=== PATIENT | female | born 1970 | race Caucasian/White ===

== ENCOUNTER → 2018-05-31 | Outpatient (CLI) | payer BC ==
[~2018-05-31] MED LIST: CARV12.53 PO; ETHI1TAB PO; LEVO100T PO; LOSA100T57 PO
--- NOTE | 2018-05-31 18:04 | Diagnostic Imaging Report ---
INDICATION: Routine screening. COMPARISON: No prior mammograms are available for comparison. This is a baseline study. TECHNIQUE: 2-D and 3-D bilateral screening mammography was performed with CAD. FINDINGS: Scattered fibronodular densities are identified bilaterally. No mass or malignant appearing microcalcifications are seen. The axillae are unremarkable. IMPRESSION: BI-RADS category 1. No mammographic features suspicious for malignancy are identified. Dictated by: Dictated on workstation # [id number]
== END ==
LOC: RAD 08:02
PROVIDERS: ATTEND Internal Medicine
DX: Z12.31 Encounter for screening mammogram for malignant neoplasm of breast (principal)
CPT/HCPCS: 77067

== ENCOUNTER → 2018-09-30 | Outpatient (CLI) | payer BC ==
[~2018-09-30] MED LIST changes: +ETHI1TAB19 PO; +LEVO175T5 PO; +NAPR-915 PO
--- NOTE | 2018-09-30 16:53 | Diagnostic Imaging Report ---
PROCEDURE: US Non-ob pelvis comp/trans. INDICATION: Abnormal uterine bleeding TECHNIQUE: Multiple real time ramirez scale sonographic images were obtained of the pelvis transabdominally and transvaginally. CORRELATION STUDY: None FINDINGS: UTERUS: 7.8 x 4.0 x 3.6 cm. The uterus appears unremarkable. ENDOMETRIUM: 4 mm. The endometrium appearing unremarkable. Small amount of fluid noted in the endometrial canal near the cervix. Cervical nabothian cyst is present measuring 5 mm. RIGHT OVARY/LEFT OVARY: The ovaries are not visualized on either transabdominal or transvaginal imaging. No significant free pelvic fluid. IMPRESSION: 1. Endometrial thickness within normal limits. There is small amount of fluid perhaps blood within the lower endometrial canal. 2. Nonvisualization of either ovary. Dictated by: Dictated on workstation # [id number]
== END ==
LOC: RAD 16:17
PROVIDERS: ATTEND Obstetrics & Gynecology
DX: N93.9 Abnormal uterine and vaginal bleeding, unspecified (principal)
CPT/HCPCS: 76830; 76856

== ENCOUNTER 2018-10-04 05:47 | Outpatient (CLI) | payer BC ==
[~2018-10-04] VITALS: Ht 172.7 cm; Wt 147.4 kg
[~2018-10-04 05:47] MED LIST changes: -ETHI1TAB19 PO; -LEVO175T5 PO; -NAPR-915 PO
[2018-10-04] MEDS ORDERED: NAPR-915 PO (13:21)
[2018-10-04] MEDS ORDERED: ETHI1TAB19 PO (13:21)
[2018-10-04] MEDS ORDERED: LEVO175T5 PO (13:21)
== END 2018-10-04 13:32 | disposition home or self-care (01) ==
LOC: PREOP 05:47
PROVIDERS: ATTEND Obstetrics & Gynecology
DX: Z01.818 Encounter for other preprocedural examination (principal)

== ENCOUNTER 2018-10-07 07:04 | Day surgery (SDC) | payer BC ==
[~2018-10-07] VITALS: Ht 172.7 cm; Wt 147.4 kg
[2018-10-07] VITALS (11 sets, daily range): BP systolic 108–125; BP diastolic 65–76
[~2018-10-07 07:04] MED LIST changes: +ETHI1TAB19 PO; +LEVO175T5 PO; +NAPR-915 PO
[2018-10-07] MEDS ORDERED: BUPIVACAINE 0.25% 30 ML (SENSORCAINE) VIAL ONE (07:18)
[2018-10-07] MEDS ORDERED: LACTATED RINGERS 1,000 ML IV PRN (07:50)
[2018-10-07 07:51] LABS: BASOPHILS % (AUTO) 0 % (0-10); EOSINOPHILS # (AUTO) 0.2 10^3/uL (0.0-0.3); EOSINOPHILS % (AUTO) 2 % (0-10); HEMATOCRIT 36 % (35-52); HEMOGLOBIN 12.2 G/DL (11.5-16.0); LYMPHOCYTES # (AUTO) 3.1 X 10^3 (1.0-4.0); LYMPHOCYTES % (AUTO) 34 % (12-44); MEAN CORPUSCULAR HEMOGLOBIN 30 PG (25-34); MEAN CORPUSCULAR HGB CONC 34 G/DL (32-36); MEAN CORPUSCULAR VOLUME 89 FL (80-99); MEAN PLATELET VOLUME 10.2 FL (7.4-10.4); MONOCYTES # (AUTO) 0.8 X 10^3 (0.0-1.0); MONOCYTES % (AUTO) 8 % (0-12); NEUTROPHILS # (AUTO) 5.1 X 10^3 (1.8-7.8); NEUTROPHILS % (AUTO) 55 % (42-75); PLATELET COUNT 238 10^3/uL (130-400); RED CELL DISTRIBUTION WIDTH 13.3 % (10.0-14.5); WHITE BLOOD COUNT 9.2 10^3/uL (4.3-11.0)
[2018-10-07] MEDS ORDERED: fentaNYL INJECTION 100 MCG/2 ML AMP ONE (08:25)
[2018-10-07] MEDS ORDERED: MIDAZOLAM 2 MG/2 ML (VERSED) VIAL ONE (08:25)
--- NOTE | 2018-10-07 08:34 | Progress Note-Pre Operative ---
Pre-Operative Progress Note H&P Reviewed The H&P was reviewed, patient examined and no changes noted. Date Seen by Provider: Oct 07, 2018 Time Seen by Provider: 08:30 Date H&P Reviewed: Oct 07, 2018 Time H&P Reviewed: 08:30 Pre-Operative Diagnosis: DEBORAH BLANCHARD DO Oct 07, 2018 08:34
--- NOTE | 2018-10-07 08:35 | Discharge Inst-Women's Service ---
Discharge Inst-Women's Serv Depart Medication/Instructions New, Converted or Re-Newed RX: RX on Chart Problems Reviewed?: Yes Consults/Follow Up Additional Follow Up: Yes Orders/Referrals Dr. Quinn in 2-3 weeks Activity Activity: Activity as Tolerated Driving Instructions: No Driving for 1 Week NO SMOKING: NO SMOKING Nothing Inside Vagina: No Douching, No [place], No Tampons Diet Discharge Diet: No Restrictions Symptoms to Report to : Bleeding Excessive, Pain Increased, Fever Over 101 Degrees F, Vaginal Bleeding Increase, Questions/Concerns For Any Problems or Questions: Contact Your Physician DEBORAH QUINN DO Oct 07, 2018 08:35
[2018-10-07] MEDS ORDERED: IBUP-1773 PO (08:36)
[2018-10-07] MEDS ORDERED: D5 LR IV SOLUTION 1,000 ML IV SCH (08:47)
[2018-10-07] MEDS ORDERED: HYDROcodone/APAP 5 MG/325 MG (LORTAB) TAB PO PRN (09:00)
[2018-10-07] MEDS ORDERED: ONDANSETRON 4 MG/2 ML (SDV) Z0FRAN IVP PRN ×2 (09:00→09:45)
[2018-10-07] MEDS ORDERED: KETOROLAC 30 MG/ML VIAL IVP ONE (09:00)
[2018-10-07] MEDS ORDERED: proPOfol 200 MG/20 ML (DIPRIVAN) VIAL IV ONE (09:15)
[2018-10-07] MEDS ORDERED: LIDOCAINE PF 2% 5 ML (XYLOCAINE) VIAL ONE (09:15)
[2018-10-07] MEDS ORDERED: GLYCOPYRROLATE 0.2 MG/ML (ROBINUL) 2 ML VIAL ONE (09:15)
[2018-10-07] MEDS ORDERED: PHENYLEPHRINE 100 MCG/ML 10 ML (ANESTHESIA) SYR ONE (09:16)
[2018-10-07] MEDS ORDERED: SEVOFLURANE (ULTANE) 15 ML INHAL SOLN ONE ×2 (09:17→09:24)
[2018-10-07] MEDS ORDERED: HYDROmorphone 2 MG/ML VIAL (DILAUDID) IV ONE (09:45)
--- NOTE | 2018-10-07 11:03 | Anesthesia-General Post-Op ---
General Patient Condition Mental Status/LOC: Same as Preop Cardiovascular: Satisfactory Nausea/Vomiting: Absent Respiratory: Satisfactory Pain: Controlled Complications: Absent Post Op Complications Complications None Follow Up Care/Instructions Patient Instructions None needed. Anesthesia/Patient Condition Patient Condition Patient is doing well, no complaints, stable vital signs, no apparent adverse anesthesia problems. No complications reported per nursing. STACIA ALMAGUER CRNA Oct 07, 2018 11:03
--- NOTE | 2018-10-07 16:31 | OPERATIVE REPORT ---
DATE OF SERVICE: 10/07/2018 PREOPERATIVE DIAGNOSES: 1. A 47-year-old female with abnormal uterine bleeding. 2. BMI greater than 40. POSTOPERATIVE DIAGNOSES: 1. A 47-year-old female with abnormal uterine bleeding. 2. BMI greater than 40. PROCEDURE: D and C. SURGEON: Deborah Quinn DO ANESTHESIA: General endotracheal. ESTIMATED BLOOD LOSS: Minimal. URINE OUTPUT: 50 mL, clear drained at the end of the procedure. FLUIDS: 1000 mL lactated Ringer solution. FINDINGS: Grossly normal external female genitalia including the vagina and the cervix, which appears normal, not enlarged uterus, moderate amount of endometrial tissue. SPECIMENS SENT: Was endometrial curettings. INDICATION FOR PROCEDURE: This 47-year-old female is a patient, who was seen in my office for heavy ongoing bleeding that had been occurring for almost a month to the point that the patient was concerned about becoming anemic and lightheaded. She had been on oral contraceptive pills and told to double up her oral contraceptive pills until the day of surgery to help control her bleeding as she was scheduled within the next week for D and C to hopefully help cure the bleeding problem, but also for diagnostic purposes due to the patient's risk factor of greater than 40 and elevated BMI. Risks of the procedure were discussed with the patient in detail and once all of her questions were answered with her and her present, consent was obtained in the preoperative area, the patient was taken to the operating room. OPERATIVE REPORT IN DETAIL: Once in the operating room, anesthesia was found to be adequate. She was placed in dorsal lithotomy position, prepped and draped in normal sterile fashion. A timeout was performed. Weighted speculum was inserted in the patient's vagina. Right angle retractor was used to visualize the cervix, which was grasped at 12 o'clock position using a long Allis clamp. I then performed paracervical block at 3 and 9 o'clock positions using 0.25% Marcaine and 5 mL were injected into each site. Care was taken to aspirate before injecting. I then gently sound the uterine cavity, which was found to be approximately 7 cm. I then gently dilated the cervix using Hegar dilators to approximately 6 mm at which point, I advanced a small to medium size endometrial curette into the endometrium and cleared the endometrium with gentle curettage on all surfaces until I feel that adequate uterine cry is felt from all directions, at which point, I collected endometrial tissue and sent it as endometrial curettings. There was no active bleeding noted from any of my dissection planes. I removed all the other instruments from the patient's vagina. Straight catheterization was used to drain the bladder. The patient tolerated the procedure well and sent to recovery area in stable condition. Lap and sponge counts were correct at the end of the procedure. Instrument counts were correct as well. Job ID: [id number] DocumentID: [id number] Dictated Date: 10/07/2018 09:47:23 Bed Placement Coordinator Date: 10/07/2018 16:30:34 Dictated By: DEBORAH QUINN DO
== END 2018-10-07 11:55 | disposition home or self-care (01) ==
LOC: SDC 07:04
PROVIDERS: ATTEND Obstetrics & Gynecology
DX: N93.9 Abnormal uterine and vaginal bleeding, unspecified (principal); N71.1 Chronic inflammatory disease of uterus; E03.9 Hypothyroidism, unspecified; D64.9 Anemia, unspecified; I10 Essential (primary) hypertension; E66.01 Morbid (severe) obesity due to excess calories; Z68.42 Body mass index [BMI] 45.0-49.9, adult; Z79.3 Long term (current) use of hormonal contraceptives; Z90.49 Acquired absence of other specified parts of digestive tract; Z79.899 Other long term (current) drug therapy; Z98.890 Other specified postprocedural states; Z84.89 Family history of other specified conditions; Z82.49 Family history of ischemic heart disease and other diseases of the circulatory system; Z83.3 Family history of diabetes mellitus
CPT/HCPCS: 36415; 84703; 85025; 86850; 86900; 86901; 87081; 88305

== ENCOUNTER → 2019-07-21 | Outpatient (CLI) | payer BC ==
[~2019-07-21] MED LIST changes: +IBUP-1773 PO
--- NOTE | 2019-07-21 11:46 | Diagnostic Imaging Report ---
INDICATION: Routine screening. Comparison is made with prior mammogram from 05/31/2018. 2-D and 3-D bilateral screening mammography was performed with CAD. Scattered fibroglandular densities are identified bilaterally. The parenchymal pattern is stable. No dominant mass or malignant appearing microcalcifications are seen. Axillae are unremarkable. IMPRESSION: BI-RADS Category 1 No mammographic features suspicious for malignancy are identified. ACR BI-RADS Category 1: Negative. Result letter will be mailed to the patient. Note: At least 10% of breast cancer is not imaged by mammography. Dictated by: Dictated on workstation # [id number]
== END ==
LOC: RAD 08:44
PROVIDERS: ATTEND Internal Medicine
DX: Z12.31 Encounter for screening mammogram for malignant neoplasm of breast (principal)
CPT/HCPCS: 77063; 77067

== ENCOUNTER → 2020-11-04 | Outpatient (CLI) | payer BC ==
--- NOTE | 2020-11-04 08:41 | Diagnostic Imaging Report ---
INDICATION: Routine screening. COMPARISON: 07/21/2019 and 05/31/2018. TECHNIQUE: 2D and 3D bilateral screening mammography was performed with CAD. FINDINGS: Scattered fibroglandular densities are identified bilaterally. The parenchymal pattern is stable. No mass or malignant-appearing microcalcifications are seen. The axillae are unremarkable. IMPRESSION: No mammographic features suspicious for malignancy are identified. ACR BI-RADS Category 1: Negative. Result letter will be mailed to the patient. Note: At least 10% of breast cancer is not imaged by mammography. Dictated by: Dictated on workstation # [id number]
== END ==
LOC: RAD 07:45
PROVIDERS: ATTEND Internal Medicine
DX: Z12.31 Encounter for screening mammogram for malignant neoplasm of breast (principal)
CPT/HCPCS: 77063; 77067

== ENCOUNTER → 2021-11-11 | Outpatient (CLI) | payer BC ==
--- NOTE | 2021-11-11 10:28 | Diagnostic Imaging Report ---
Indication: Routine screening. Comparison is made with prior mammogram 11/04/2020 and 07/21/2019. 2-D and 3-D bilateral screening mammography was performed with CAD. CAD is utilized. The current study was also evaluated with a Computer Aided Detection (CAD) system. Scattered fibroglandular densities are identified bilaterally. The parenchymal pattern is stable. No mass or malignant-appearing microcalcifications are seen. Axillae are unremarkable. IMPRESSION: BI-RADS Category 1 No mammographic features suspicious for malignancy are identified. ACR BI-RADS Category 1: Negative. Result letter will be mailed to the patient. Note: At least 10% of breast cancer is not imaged by mammography. Dictated by: Dictated on workstation # [id number]
== END ==
LOC: RAD 07:50
PROVIDERS: ATTEND Internal Medicine
DX: Z12.31 Encounter for screening mammogram for malignant neoplasm of breast (principal)
CPT/HCPCS: 77063; 77067

== ENCOUNTER 2022-10-10 05:35 | Emergency (ER) | payer BC ==
[~2022-10-10] VITALS: Ht 175 cm; Wt 136.0 kg
[~2022-10-10 05:35] MED LIST changes: -LOSA100T57 PO; +LOSA100T58 PO
[2022-10-10 06:00] VITALS: BP 151/107
[2022-10-10] MEDS ORDERED: KETOROLAC 30 MG/ML VIAL IVP ONE (06:15)
--- NOTE | 2022-10-10 06:22 | ED Abdominal Pain ---
General Chief Complaint: Dental Problems/Pain Stated Complaint: FACE SWELLING,EAR & JAW PX,RT SIDE Nursing Triage Note: PATIENT REPORTS SHE HAS BEEN HAVING JAW/DENTAL ISSUES SINCE JULY. STATES SHE HAS BEEN SEEING AN ENT SPECIALIST, DENTIST. PATIENT STATES PAIN RT SIDE OF MOUTH. STATES SWELLING OCCURRED WEDNESDAY, ROOF OF MOUTH RT SIDE. Source of Information: Patient, Old Records Exam Limitations: No Limitations History of Present Illness Date Seen by Provider: Oct 10, 2022 Time Seen by Provider: 06:02 Initial Comments This pleasant 51-year-old woman presents to the emergency room by private vehicle with complaints of right facial pain and swelling extending from the preauricular area down through the anterior chin. She has been seen by primary care, a practitioner at Dr. Morataya's office (ENT), a chiropractor, and a dentist. Symptoms started in July and she was treated with a round of Augmentin at that time. Symptoms have rebounded and worsened, in particular through the night last night. She was seen by her dentist and had x-rays obtained. By her report these were not particularly helpful in a diagnosis. She states her dentist thought perhaps she had trigeminal neuralgia. TMJ was also suggested at one point during evaluation. She notes more severe swelling in the right side of her face, particularly around the chin this morning. There is mild erythema of the chin. She has significant tenderness in that region. She took Tylenol at 0200 and Benadryl at 0300. She denies fever. She does appear uncomfortable and was tearful toward the conclusion of our interview. Allergies and Home Medications Allergies Coded Allergies: No Known Drug Allergies (Unverified , 10/04/18) Patient Home Medication List Home Medication List Reviewed: Yes Carvedilol (Carvedilol) 12.5 Mg Tablet, 18.25 MG PO BID, (Reported) Entered as Reported by: DEREJE ANNE on 02/12/15 1553 Clindamycin HCl (Clindamycin HCl) 300 Mg Capsule, 300 MG PO QID Prescribed by: MAREN SCHMIDT on 10/10/22 1005 Ethinyl Estradiol/Drospirenone (Roxana 28 Tablet) 1 Each Tablet, 1 EACH PO DAILY, (Reported) Entered as Reported by: DEREJE ANNE on 10/04/18 1321 Ibuprofen (Ibuprofen) 600 Mg Tablet, 600 MG PO Q6H Prescribed by: DEBORAH QUINN on 10/07/18 0836 Levothyroxine Sodium (Levothyroxine Sodium) 175 Mcg Tablet, 175 MCG PO DAILY, (Reported) Entered as Reported by: DEREJE ANNE on 10/04/18 1321 Losartan Potassium (Losartan Potassium) 100 Mg Tablet, 100 MG PO DAILY, (Reported) Entered as Reported by: DEREJE ANNE on 02/12/15 1553 Naproxen (Naproxen) 500 Mg Tablet, 500 MG PO Q12H PRN for PAIN-MILD TO MODERATE, (Reported) Entered as Reported by: DEREJE ANNE on 10/04/18 1321 Tramadol HCl (Tramadol HCl) 50 Mg Tablet, 50 MG PO Q6H PRN for PAIN Prescribed by: MAREN SCHMIDT on 10/10/22 1006 Review of Systems Review of Systems Constitutional: no symptoms reported EENTM: See HPI Respiratory: No Symptoms Reported Cardiovascular: No Symptoms Reported Gastrointestinal: No Symptoms Reported Genitourinary: No Symptoms Reported Musculoskeletal: no symptoms reported Skin: no symptoms reported Psychiatric/Neurological: No Symptoms Reported Endocrine: No Symptoms Reported Hematologic/Lymphatic: No Symptoms Reported Past Eszdfdb-Ywhfzw-Dvsapa Hx Patient Social History Tobacco Use?: No Use of E-Cig and/or Vaping dev: No Substance use?: No Alcohol Use?: Yes Alcohol Frequency: Several times a month Seasonal Allergies Seasonal Allergies: No Past Medical History Surgeries: Yes (ROTATOR CUFF REPAIR) Gallbladder, Orthopedic Respiratory: No Cardiac: Yes Hypertension Neurological: No Reproductive Disorders: No Female Reproductive Disorders: Menstrual Problems Sexually Transmitted Disease: No HIV/AIDS: No Genitourinary: No Gastrointestinal: No Musculoskeletal: Yes (TOLD SHE HAS ARTHRITIS IN SHOULDER) Arthritis Endocrine: Yes Hypothyroidsim HEENT: Yes (CONTACTS, history TMJ) Loss of Vision: Denies Hearing Impairment: Denies Cancer: No Psychosocial: No Integumentary: Yes Psoriasis Blood Disorders: Yes (MILD ANEMIA) Adverse Reaction/Blood Tranf: No (N/A) Physical Exam Vital Signs Vital Signs - First Documented 10/10/22 06:00 Temp 36.9 Pulse 74 Resp 18 B/P (MAP) 151/107 (122) Pulse Ox 96 O2 Delivery Room Air Capillary Refill : Less Than 3 Seconds Height/Weight/BMI Height: 5'8.00" Weight: 325lbs. 0.0oz. 147.924166yw; 44.00 BMI Method: General Appearance: mild distress, obese HEENT: PERRL/EOMI, pharynx normal, TM abnormal (R) (Mild retraction), TM abnormal (L) (Mild retraction), other (Slight edema on the roof of the mouth near the right molars. Right lower face edema, particularly around the anterior mandible with mild erythema and significant tenderness. No induration or edema of the mouth floor. Caps on multiple teeth with some dental decay noted.) Neck: non-tender, supple, normal inspection; No lymphadenopathy (R), No lymphadenopathy (L) Respiratory: lungs clear, normal breath sounds, no respiratory distress, no accessory muscle use Cardiovascular: regular rate, rhythm, no edema, no murmur Extremities: normal inspection Neurologic/Psychiatric: respiratory care faculty II-XII nml as tested, no motor/sensory deficits, alert, normal mood/affect, oriented x 3 Skin: warm/dry, other (Erythema about the anterior mandible) Progress/Results/Core Measures Results/Orders Lab Results Laboratory Tests Test 10/10/22 06:24 Range/Units White Blood Count 8.4 4.3-11.0 10^3/uL Red Blood Count 4.35 3.80-5.11 10^6/uL Hemoglobin 13.4 11.5-16.0 g/dL Hematocrit 40 35-52 % Mean Corpuscular Volume 91 80-99 fL Mean Corpuscular Hemoglobin 31 25-34 pg Mean Corpuscular Hemoglobin Concent 34 32-36 g/dL Red Cell Distribution Width 13.2 10.0-14.5 % Platelet Count 222 130-400 10^3/uL Mean Platelet Volume 10.0 9.0-12.2 fL Immature Granulocyte % (Auto) 0 % Neutrophils (%) (Auto) 61 42-75 % Lymphocytes (%) (Auto) 26 12-44 % Monocytes (%) (Auto) 10 0-12 % Eosinophils (%) (Auto) 2 0-10 % Basophils (%) (Auto) 1 0-10 % Neutrophils # (Auto) 5.2 1.8-7.8 10^3/uL Lymphocytes # (Auto) 2.2 1.0-4.0 10^3/uL Monocytes # (Auto) 0.8 0.0-1.0 10^3/uL Eosinophils # (Auto) 0.2 0.0-0.3 10^3/uL Basophils # (Auto) 0.1 0.0-0.1 10^3/uL Immature Granulocyte # (Auto) 0.0 0.0-0.1 10^3/uL Erythrocyte Sedimentation Rate 20 0-20 MM/HR Sodium Level 137 135-145 MMOL/L Potassium Level 4.2 3.6-5.0 MMOL/L Chloride Level 106 98-107 MMOL/L Carbon Dioxide Level 20 L 21-32 MMOL/L Anion Gap 11 5-14 MMOL/L Blood Urea Nitrogen 12 7-18 MG/DL Creatinine 0.82 0.60-1.30 MG/DL Estimat Glomerular Filtration Rate 88 BUN/Creatinine Ratio 15 Glucose Level 97 70-105 MG/DL Calcium Level 9.1 8.5-10.1 MG/DL Corrected Calcium 9.0 8.5-10.1 MG/DL Total Bilirubin 0.7 0.1-1.0 MG/DL Aspartate Amino Transf (AST/SGOT) 21 5-34 U/L Alanine Aminotransferase (ALT/SGPT) 26 0-55 U/L Alkaline Phosphatase 61 40-136 U/L C-Reactive Protein High Sensitivity 0.78 H 0.00-0.50 MG/DL Total Protein 7.6 6.4-8.2 GM/DL Albumin 4.1 3.2-4.5 GM/DL My Orders Orders - MAREN ROBERTS MD Cbc With Automated Diff (10/10/22 06:14) Comprehensive Metabolic Panel (10/10/22 06:14) Hs C Reactive Protein (10/10/22 06:14) Erythrocyte Sedimentation Rate (10/10/22 06:14) Ed Iv/Invasive Line Start (10/10/22 06:14) Ketorolac Injection (Toradol Injection) (10/10/22 06:15) Ct Maxillofacial W (10/10/22 07:20) Iohexol Injection (Omnipaque 350 Mg/Ml 1 (10/10/22 07:45) Received Contrast (Hold Metformin- Contr (10/10/22 07:45) Ns (Ivpb) 100 Ml (Sodium Chloride 0.9% 1 (10/10/22 07:45) Clindamycin 600 Mg/50 Ml Ivpb (Clindamyc (10/10/22 09:30) Tramadol Tablet (Ultram Tablet) (10/10/22 09:45) Iv Infusion <= First Hr Ed (10/10/22 ) Medications Given in ED Vital Signs/I&O 10/10/22 06:00 Temp 36.9 Pulse 74 Resp 18 B/P (MAP) 151/107 (122) Pulse Ox 96 O2 Delivery Room Air Blood Pressure Mean: 122 Progress Progress Note #1: Time: 06:17 Progress Note Patient was interviewed and examined at 0602 as she was being roomed and triaged. Labs have been ordered and are pending. Pain will be treated with Toradol. CT evaluation of the face and neck is anticipated. Progress Note #2: Time: 07:06 Progress Note Labs were reviewed and interpreted by me including CBC, CMP, and CRP. ESR was pending. Student updated patient. She had no questions and was ready to proceed with CT. CT ordered. Progress Note #3: Time: 09:[address] was obtained and reviewed by me. By my interpretation there was cellulitis over the anterior portions of the mandible. There is also significant dental and periodontal disease noted with lucency in the bone structures. There was a lso a lucency in the subcutaneous tissue anterior to the mandible. Abscess was felt unlikely but uncertain by my interpretation. No significant sinusitis was appreciated. Radiologist's report was reviewed and did not identify any abscess. See report below for details. Patient was treated initially with clindamycin by IV route. She was feeling better with Toradol. Pain was further treated with tramadol. I discussed findings and treatment plan with the patient. Questions were answered. See discharge instructions for further discussion. Diagnostic Imaging Diagonstic Imaging: CT Plain Films/CT/US/NM/MRI: facial bones Comments NAME: LISS CROCK[facility] REC#: [id number] PT STATUS: REG ER : 1970 PHYSICIAN: MAREN ROBERTS MD ADMIT DATE: 10/10/22/ER Signed Date of Exam:10/10/22 CT MAXILLOFACIAL W PROCEDURE: CT maxillofacial with contrast. TECHNIQUE: After intravenous administration of contrast, axial images were obtained through the face and reformatted into coronal and sagittal planes. Auto Exposure Controls were utilized during the CT exam to meet ALARA standards for radiation dose reduction. INDICATION: Facial pain and swelling. COMPARISON: None. FINDINGS: The mandible is intact. The bilateral TMJ demonstrate normal alignment. The zygomatic arches and pterygoid plates have a normal appearance without acute fracture. The nasal bones and nasal septum are intact. There is minimal rightward deviation of the nasal septum. The paranasal sinuses are well pneumatized. The mastoid air cells are clear. The globes and orbits have a normal appearance. No post septal inflammation. No evidence of orbital rim fracture. There is soft tissue inflammation and edema anterior to the body and mental process of the mandible, greatest on the right. There is a periapical lucency associated with the right canine and 1st bicuspid of the mandible. IMPRESSION: 1. 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 No periosteal abscess is seen at this time. Recommend dental consultation to further evaluate. 2. No acute facial fractures. Dictated by: Dictated on workstation # [id number] Dict: 10/10/22 0746 Trans: 10/10/22801 HANG [id number] Interpreted by: GHAZALA JOHNSON DO Electronically signed by: GHAZALA JOHNSON DO 10/10/22801 Departure Impression Primary Impression: Periodontal disease Additional Impression: Facial cellulitis Disposition: 01 HOME, SELF-CARE Condition: Improved Departure-Patient Inst. Decision time for Depature: 10:00 Referrals: LETICIA FREEMAN DO (PCP/Family) Primary Care Physician CHEN THOMAS DDS Patient Instructions: Cellulitis (Skin Infection), Adult ED, Periodontal Disease Add. Discharge Instructions: You appear to have cellulitis (soft tissue and skin infection) of the facial tissues, likely triggered by periodontal disease. Continue clindamycin antibiotics as prescribed. Clindamycin antibiotic may trigger diarrhea in some people. If this occurs, you may use an [id number]-[id number] probiotic to help with the diarrhea. For primary pain control use naproxen (Aleve) up to 500 mg twice daily or ibuprofen up to 600 mg every 6 hours. For pain not adequately controlled by ibuprofen or naproxen, add Tylenol (acetaminophen) up to 1000 mg every 6 hours as needed. For severe pain or pain not adequately controlled by the above medications, add Ultram (tramadol) as prescribed. Tramadol may cause drowsiness so do not drive, operate machinery, or make important decisions while on tramadol. Tramadol may also cause constipation, so you may wish to use a stool softener while on tramadol. Please follow-up with your dentist soon as possible. Bring your CD of your CT scan with you and the CT report with you at follow-up. You may need referral to an oral surgeon. Contact information for Dr. Thomas is below. Keeping your head elevated above the level of your heart should help reduce swelling and pressure. Icing or gentle heat in moderation may be helpful to control pain and swelling but is not necessary. You should start noticing significant improvement in pain and swelling within 1 to 2 days of starting antibiotics. There may be slight worsening in the first 24 hours until antibiotics start taking effect. Return to the emergency room if you have worsening symptoms despite following these instructions, especially if you are developing persistent fever over 100.4. All discharge instructions reviewed with patient and/or family. Voiced understanding. Scripts Tramadol HCl (Tramadol HCl) 50 Mg Tablet 50 MG PO Q6H PRN for PAIN, #10 TAB 0 Refills Prov: MAREN ROBERTS MD 10/10/22 Clindamycin HCl (Clindamycin HCl) 300 Mg Capsule 300 MG PO QID, #40 CAP Prov: MAREN ROBERTS MD 10/10/22 Copy Copies To 1: LETICIA FREEMAN DO Copies To 2: DEBORAH MORATAYA MD, JOSHUA T MD Oct 10, 2022 06:22
[2022-10-10 06:32] LABS: BASOPHILS # (AUTO) 0.1 10^3/uL (0.0-0.1); BASOPHILS % (AUTO) 1 % (0-10); EOSINOPHILS # (AUTO) 0.2 10^3/uL (0.0-0.3); EOSINOPHILS % (AUTO) 2 % (0-10); HEMATOCRIT 40 % (35-52); HEMOGLOBIN 13.4 g/dL (11.5-16.0); LYMPHOCYTES # (AUTO) 2.2 10^3/uL (1.0-4.0); LYMPHOCYTES % (AUTO) 26 % (12-44); MEAN CORPUSCULAR HEMOGLOBIN 31 pg (25-34); MEAN CORPUSCULAR HGB CONC 34 g/dL (32-36); MEAN CORPUSCULAR VOLUME 91 fL (80-99); MONOCYTES # (AUTO) 0.8 10^3/uL (0.0-1.0); MONOCYTES % (AUTO) 10 % (0-12); NEUTROPHILS # (AUTO) 5.2 10^3/uL (1.8-7.8); NEUTROPHILS % (AUTO) 61 % (42-75); PLATELET COUNT 222 10^3/uL (130-400); WHITE BLOOD COUNT 8.4 10^3/uL (4.3-11.0)
[2022-10-10 06:48] LABS: ALBUMIN 4.1 GM/DL (3.2-4.5)
[2022-10-10 06:49] LABS: POTASSIUM 4.2 MMOL/L (3.6-5.0)
[2022-10-10 06:50] LABS: CALCIUM 9.1 MG/DL (8.5-10.1)
[2022-10-10 06:51] LABS: TOTAL PROTEIN 7.6 GM/DL (6.4-8.2)
[2022-10-10 06:53] LABS: BILIRUBIN,TOTAL 0.7 MG/DL (0.1-1.0)
[2022-10-10 06:55] LABS: CREATININE SERUM 0.82 MG/DL (0.60-1.30)
[2022-10-10 07:13] LABS: ERYTHROCYTE SEDIMENTATION RATE 20 MM/HR (0-20)
[2022-10-10] MEDS ORDERED: IOHEXOL 350 MG/ML 100 ML (OMNIPAQUE 350) VIAL IV ONE (07:45)
[2022-10-10] MEDS ORDERED: NS 100 ML (IVPB) BAG IV ONE (07:45)
[2022-10-10] MEDS ORDERED: HOLD METFORMIN - RECEIVED CONTRAST 20 ML VIAL IV SCH (07:45)
--- NOTE | 2022-10-10 07:56 | Diagnostic Imaging Report ---
PROCEDURE: CT maxillofacial with contrast. TECHNIQUE: After intravenous administration of contrast, axial images were obtained through the face and reformatted into coronal and sagittal planes. Auto Exposure Controls were utilized during the CT exam to meet ALARA standards for radiation dose reduction. INDICATION: Facial pain and swelling. COMPARISON: None. FINDINGS: The mandible is intact. The bilateral TMJ demonstrate normal alignment. The zygomatic arches and pterygoid plates have a normal appearance without acute fracture. The nasal bones and nasal septum are intact. There is minimal rightward deviation of the nasal septum. The paranasal sinuses are well pneumatized. The mastoid air cells are clear. The globes and orbits have a normal appearance. No post septal inflammation. No evidence of orbital rim fracture. There is soft tissue inflammation and edema anterior to the body and mental process of the mandible, greatest on the right. There is a periapical lucency associated with the right canine and 1st bicuspid of the mandible. IMPRESSION: 1. 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 No periosteal abscess is seen at this time. Recommend dental consultation to further evaluate. 2. No acute facial fractures. Dictated by: Dictated on workstation # [id number]
[2022-10-10] MEDS ORDERED: CLINDAMYCIN 600 MG/50 ML IVPB 50 ML IV ONE (09:30)
[2022-10-10] MEDS ORDERED: CLIN-144 PO (10:05)
[2022-10-10] MEDS ORDERED: TRM50T PO (10:05)
== END 2022-10-10 10:25 | disposition home or self-care (01) ==
LOC: EDUNIT# 05:35 → ER 05:37
DX: K05.6 Periodontal disease, unspecified (principal); L03.211 Cellulitis of face; E66.9 Obesity, unspecified; Z68.41 Body mass index [BMI] 40.0-44.9, adult
CPT/HCPCS: 36415; 70487; 80053; 85025; 85652; 86141; 96365; 96375; 99281

== ENCOUNTER → 2022-11-16 | Outpatient (CLI) | payer BC ==
[~2022-11-16] MED LIST changes: +CLIN-144 PO; +TRM50T PO
--- NOTE | 2022-11-16 10:42 | Diagnostic Imaging Report ---
INDICATION: Routine screening. COMPARISON: 11/11/2021 and 11/04/2020. TECHNIQUE: 2D and 3D bilateral screening mammography was performed with CAD. FINDINGS: Scattered fibroglandular densities are identified bilaterally. The parenchymal pattern is stable. No mass or malignant-appearing microcalcifications are identified. The axillae are unremarkable. IMPRESSION: No mammographic features suspicious for malignancy are identified. ACR BI-RADS Category 1: Negative. Result letter will be mailed to the patient. Note: At least 10% of breast cancer is not imaged by mammography. Dictated by: Dictated on workstation # [id number]
== END ==
LOC: RAD 07:30
PROVIDERS: ATTEND Internal Medicine
DX: Z12.31 Encounter for screening mammogram for malignant neoplasm of breast (principal)
CPT/HCPCS: 77063; 77067